=== PATIENT | male | born 1980 | race Two or more races ===

== ENCOUNTER 2023-01-23 08:37 | Emergency (ER) | payer MEDICAID, OTHER ==
[~2023-01-23] VITALS: Ht 175.3 cm; Wt 122.6 kg
[2023-01-23 09:44] VITALS: BP 150/72; PULSE 80; RESP 18; TEMP 97; O2SAT 99
[2023-01-23] MEDS ORDERED: AMOX875T4 PO ×2 (09:48)
[2023-01-23] MEDS ORDERED: METH-1182 PO (09:49)
[2023-01-23] MEDS ORDERED: IBUP-1456 PO (09:49)
== END 2023-01-23 10:00 | disposition home or self-care (01) ==
LOC: ER 08:37
DX: S39.012A Strain of muscle, fascia and tendon of lower back, initial encounter (principal); X58.XXXA Exposure to other specified factors, initial encounter; Y93.89 Activity, other specified; Y92.89 Other specified places as the place of occurrence of the external cause; Y99.8 Other external cause status

== ENCOUNTER 2023-07-08 09:33 | Emergency (ER) | payer MEDICAID ==
[~2023-07-08] VITALS: Ht 175.3 cm; Wt 128.7 kg
[~2023-07-08 09:33] MED LIST: IBUP-1456 PO; METH-1182 PO
[2023-07-08 10:04] VITALS: BP 154/93; PULSE 78; RESP 16; TEMP 97.6; O2SAT 99
[2023-07-08 10:11] LABS: Urine Bacteria NONE SEEN /hpf (None Seen); Urine Blood Negative /uL (Negative); Urine Clarity Clear (Clear); Urine Color Yellow (Yellow); Urine Mucus FEW (None Seen); Urine Protein, UAD TRACE (Negative); Urine Specific Gravity 1.027 (1.001-1.035); Urine Urobilinogen Normal (Negative); Urine WBC 2 /hpf (0 - 3); Urine pH 6.5 (5.0-8.0)
== END 2023-07-08 11:21 | disposition home or self-care (01) ==
LOC: ER 09:33
DX: M54.9 Dorsalgia, unspecified (principal); R10.9 Unspecified abdominal pain
CPT/HCPCS: 74176; 81001

== ENCOUNTER 2025-02-17 03:42 | Emergency (ER) | payer MEDICAID ==
[~2025-02-17] VITALS: Ht 175.3 cm; Wt 100.0 kg
--- NOTE | 2025-02-17 04:00 | ED.PDOC ---
SOB-HPI HPI Comments PATIENT C/O BODY ACHES, CONGESTION, COUGH, SOB, NAUSEA AND DIARRHEA FOR ONE WEEK. STATES SON WAS RECENTLY SICK. DENIES DIFFICULTY BREATHING, SHORTNESS BREATH, CHEST PAIN, VOMITING, OR RECENT TRAVEL. Chief Complaint: Flu like Time Seen by MD: 03:53 Primary Care Provider: ERIN Reviewed notes: Nurses Notes, Medications, Allergies Information Source: Patient Mode of Arrival: Ambulatory Past Medical History PAST MEDICAL HISTORY: Denies Surgical History: Denies all surgeries Family History Family History: Reviewed,noncontributory to illness Social History Smoker: Non-Smoker Alcohol: Denies ETOH Use Drugs: Denies Drug Use Lives In: Home All Other Systems: Reviewed and Negative (SEE HPI) Physical Exam General Appearance: No Apparent Distress, Normal HEENT: Pharyngeal Erythema, Pharynx Normal, Sinuses (Tenderness maxillary sinus bilateral on palpation), TMs Normal Neck: Full Range of Motion, Non-Tender Respiratory: Lungs Clear, No Accessory Muscle Use, No Respiratory Distress, Normal Breath Sounds Cardiovascular: No Edema, No JVD, No Murmur, No Gallop, Normal Peripheral Pulses, Regular Rate/Rhythm Breast Exam: Deferred Gastrointestinal: No Organomegaly, Non Tender, No Pulsatile Mass, Normal Bowel Sounds, Soft Genitalia: Deferred Pelvic: Deferred Rectal: Deferred Extremities: Normal capillary refill, Normal range of motion, Non-tender Musculoskeletal : Apperance: Normal Neurologic: Alert, No Motor Deficits, Normal Affect, Normal Mood, No Sensory Deficits Cerebellar Function: Normal Reflexes: NOT DONE Skin: Dry, Normal Color, Warm Lymphatic: No Adenopathy Was a procedure done? Was a procedure done?: No Differential Dx Differential Diagnosis: Pneumonia, Otitis Media, Peritonsillar Abscess, Peritonsillar Cellulitis, Pharyngitis, URI X-Ray, Labs, Meds, VS Vital Signs Date Time Temp Pulse Resp B/P (MAP) Pulse Ox O2 Delivery O2 Flow Rate FiO2 02/17/25 03:42 97.3 68 18 154/77 97 97.3 Lab Test 02/17/25 04:00 Range/Units Influenza Type A Antigen Negative Negative Influenza Type B Antigen Negative Negative SARS-CoV-2 Antigen (Rapid) Negative NEGATIVE X-Ray, Labs, Meds, VS Comment Sinusitis secondary to chronic allergies. Patient to start trial of azithromycin notes recurrent one month ago had a sinus infection and was on Augmentin. Script trial of Medrol Dosepak. Advised to take medication as prescribed side effects discussed advised to rest increase p.o. fluids with electrolytes Tylenol as script for pain and fever per labeled directions. Follow up with your PCP in 2-3 days as necessary ER return precautions given patient indicates understanding and agrees with discharge plan of care. Time of 1ST Reevaluation: 04:00 Reevaluation 1ST: Unchanged Time of 2ND Reevaluation: 05:10 Reevaluation 2ND: Improved Patient Education/Counseling: Diagnosis, Treatment, Need For Follow Up Family Education/Counseling: No Family Present SEPSIS Sepsis Screen Date sepsis recognized/suspect: Feb 17, 2025 Time Sepsis recognized/suspect: 341 Recent Procedure: No On Antibiotic Therapy: No Respiratory Rate >20: No Heart Rate >90: No Temp<36 C (96.8 F) or >38.3 C: No SBP <90 or MAP <65 mmHG: No New Acute Mental Status Change: No Is the patient on CPAP, BIPAP,: No Vital Signs Date Time Temp Pulse Resp B/P (MAP) Pulse Ox O2 Delivery O2 Flow Rate FiO2 02/17/25 03:42 97.3 68 18 154/77 97 97.3 Departure 1 Departure Time of Disposition: 05:12 Impression: Primary Impression: Sinusitis, acute Qualified Codes: J01.01 - Acute recurrent maxillary sinusitis Disposition: HOME / SELF CARE / HOMELESS Condition: Stable e-Prescriptions Acetaminophen (Tylenol) 650 Mg Rc 650 MG NV Q4HP PRN for 7 Days, #40 TAB Prov: LANA LOYD [facility] 02/17/25 Methylprednisolone (Medrol Dosepak) 4 Mg Tim 4 MG PO UD for 6 Days, #21 TAB UAD Prov: LANA LOYD [facility] 02/17/25 Azithromycin (Azithromycin) 250 Mg Tab 250 MG PO DAILY MDD 500 for 5 Days, #6 TAB 0 Refills 2 TABLETS ORALLY ON DAY ONE, THEN 1 TABLET ORALLY DAILY FOR 4 DAYS Prov: LANA LOYDP 02/17/25 Discharged With: Self Critical Care Note Critical Care Time?: No Stability Stability form required: No Heart Score Heart Score: Heart Score Response (Comments) Value History N/A 0 EKG N/A 0 Age <45 0 Risk Factors N/A 0 Troponin N/A 0 Total 0 LANA LOYDP Feb 17, 2025 04:00
[2025-02-17 05:04] LABS: COVID19 ANTIGEN SOFIA FIA NEGATIVE (NEGATIVE)
[2025-02-17] MEDS ORDERED: AZIT-43 PO (05:14)
[2025-02-17] MEDS ORDERED: METH4PAK PO (05:14)
[2025-02-17] MEDS ORDERED: ACE650RS PR (05:14)
[2025-02-17 05:49] VITALS: BP 145/82; PULSE 58; RESP 14; TEMP 97.8; O2SAT 97
== END 2025-02-17 05:56 | disposition home or self-care (01) ==
LOC: ER 03:42
DX: J01.01 Acute recurrent maxillary sinusitis (principal); Z20.822 Contact with and (suspected) exposure to COVID-19
CPT/HCPCS: 36415; 87426; 87804